=== PATIENT | female | born 1955 | race Caucasian/White ===

== ENCOUNTER 2020-10-15 10:11 | Emergency (ER) | payer OTHER, BC ==
[2020-10-15 10:18] VITALS: BP 170/81; PULSE 109; TEMP 98.2; BMI 17.7
[2020-10-15] MEDS ORDERED: IBUPROFEN 600 MG TABLET (FP) PO ONE ×2 (11:01→11:07)
== END 2020-10-15 14:42 | disposition home or self-care (01) ==
LOC: JERFT 10:11
DX: S32.591A Other specified fracture of right pubis, initial encounter for closed fracture (principal); S32.434A Nondisplaced fracture of anterior column [iliopubic] of right acetabulum, initial encounter for closed fracture; W01.0XXA Fall on same level from slipping, tripping and stumbling without subsequent striking against object, initial encounter
CPT/HCPCS: 73700-TC-RT; 99284-25